=== PATIENT | female | born 1940 | race Caucasian/White ===

== ENCOUNTER → 2016-10-20 | Outpatient (CLI) | payer OTHER, MEDICARE | LOC: FIMAGING 10:39 | PROVIDERS: ATTEND Internal Medicine | DX: Z12.31 Encounter for screening mammogram for malignant neoplasm of breast (principal) | CPT/HCPCS: G0202 ==

== ENCOUNTER → 2017-10-21 | Outpatient (CLI) | payer OTHER, MEDICARE | LOC: FIMAGING 10:55 | PROVIDERS: ATTEND Internal Medicine | DX: Z12.31 Encounter for screening mammogram for malignant neoplasm of breast (principal) ==

== ENCOUNTER 2018-06-16 22:08 | Emergency (ER) | payer OTHER, MEDICARE ==
--- NOTE | 2018-06-16 22:11 | EDPHY ---
H & P Source: Patient Exam Limitations: No limitations - Medical/Surgical History Hx Asthma: No Hx Chronic Respiratory Disease: No Hx Diabetes: No Hx Cardiac Disease: No Hx Renal Disease: No Hx Cirrhosis: No Hx Alcoholism: No Hx HIV/AIDS: No Hx Splenectomy or Spleen Trauma: No - Social History Smoking Status: Never smoked Time Seen by Provider: 06/16/18 22:10 HPI/ROS: HPI: This is a 77-year-old female who presents with Chief Complaint: Fell, left hand injury/pain Location: Left hand Quality: Injury/pain Duration: Around 11:00 a.m. Signs and Symptoms: No bleeding, no radiation, no numbness, no weakness, no tingling, no incontinence, no decreased range of motion, no swelling, + pain, no fever, no skin color changes Timing: Gradual onset Severity: Moderate Context: Patient is right-hand dominant, presents with accidentally falling on her left outstretched hand approximately 12 hr ago while she was playing [employer] game at the [employer]. Reports that over the last several hours she has developed dorsal wrist pain that mid hand. She reports that now "it feels warm." Denies radiation, weakness, paresthesias. Denies LOC/head injury/neck pain/dizziness/nausea/vomiting/amnesia. Modifying Factors: None Comment: ROS: A comprehensive 10 system review of systems is otherwise negative aside from elements mentioned in the history of present illness. MEDICAL/SURGICAL/SOCIAL HISTORY: Medical history: Hypothyroidism Surgical history: Denies Social history: Never smoked, retired, CONSTITUTIONAL: Physically fit elderly white female who appears younger than stated age, awake and alert, no obvious distress HEENT: Atraumatic and normocephalic, PERRL, EOMI. Nares patent; no rhinorrhea; no nasal mucosal edema. Tympanic membranes clear. Oropharynx clear, no exudate and moist pink mucosa. Airway patent. No lymphadenopathy. No meningismus. Cardiovascular: Normal S1/S2, regular rate, regular rhythm, without murmur rub or gallop. PULMONARY/CHEST: Symmetrical and nontender. Clear to auscultation bilaterally. Good air movement. No accessory muscle usage. ABDOMEN: Soft, nondistended, nontender, no rebound, no guarding, no peritoneal signs, no masses or organomegaly. No CVAT. EXTREMITIES: 2/2 rate pulses, launch leader strength 5/5, WRIST: Extension to 70, flexion to 80, radial deviation to 20 degree, ulnar deviation to 30, mild scaphoid tenderness, mild tenderness over ulnar styloid, mild tenderness over radial styloid. no deformities, no clubbing, no cyanosis or edema. NEUROLOGICAL: no focal neuro deficits. GCS 15. SKIN: Warm and dry, thin, pallor, no erythema. no rash. Good capillary refill. (Dolores Young) Constitutional: Initial Vital Signs Temperature (C) 37.0 C 06/16/18 22:29 Heart Rate 79 06/16/18 22:29 Respiratory Rate 16 06/16/18 22:29 Blood Pressure 125/90 H 06/16/18 22:29 O2 Sat (%) 93 06/16/18 22:29 O2 Delivery Mode Room Air Allergies/Adverse Reactions: Sulfa (Sulfonamide Antibiotics) Allergy (Verified 06/23/15 04:52) Rash Home Medications: Medication Instructions Recorded Levothyroxine Sodium [Synthroid] 0 mcg PO 06/23/15 Atorvastatin Calcium [Lipitor 10 10 mg PO DAILY 06/16/18 mg (*)] Escitalopram Oxalate 06/16/18 Medical Decision Making - Diagnostics Imaging Results: Imaging Impressions Hand X-Ray 06/16/18 22:34 Impression: There is no acute abnormality identified. LEFT HAND (3 Views, at 10:43 PM): The bones are mildly demineralized, however there is no acute fracture or dislocation identified. Again, there is some degenerative change at the thumb carpometacarpal joint and the aforementioned degenerative calcification just distal to the greater multangular. Impression: There is no acute osseous abnormality identified. If there is a high clinical concern regarding an occult fracture, conservative management and short-term repeat radiographic follow-up in 7-14 days could be considered. Wrist X-Ray 06/16/18 22:34 Impression: There is no acute abnormality identified. LEFT HAND (3 Views, at 10:43 PM): The bones are mildly demineralized, however there is no acute fracture or dislocation identified. Again, there is some degenerative change at the thumb carpometacarpal joint and the aforementioned degenerative calcification just distal to the greater multangular. Impression: There is no acute osseous abnormality identified. If there is a high clinical concern regarding an occult fracture, conservative management and short-term repeat radiographic follow-up in 7-14 days could be considered. Procedures: Procedure: Splint placement. A left Velcro thumb spica splint was applied. After application of the splint I returned and re-examined the patient. The splint was adequately immobilizing the joint and distal to the splint the patient's circulation and sensation was intact. (Dolores Young) ED Course/Re-evaluation: Vital signs reviewed and stable. Fall was accidental in nature. Left hand and wrist x-rays ordered and my read shows no yannick fracture or dislocation Due to pain and age, placed in Velcro thumb spica with orthopedic follow-up No signs of neurovascular compromise/tenting of skin/compartment syndrome/ extremities and joints examined above and below area of concern and are neurovascularly intact. This patient was seen under the supervision of my secondary supervising physician. I evaluated and cared for this patient independently. (Dolores Young) PHYSICIAN DOCUMENTATION: The patient was evaluated and managed by the Physician Plant And Maintenance Technician. My co- signature indicates that I have reviewed this chart and I agree with the findings and plan of care as documented. I am the secondary supervising physician. (Jazmin Blanton) Differential Diagnosis: Differential diagnosis includes but is not limited to radial fracture,, carpal fracture, scaphoid fracture, contusion, sprain, nerve injury, ligament injury. (Dolores Young) Departure - Departure Disposition: Home, Routine, Self-Care Clinical Impression: Sprain of left hand Condition: Good Instructions: Splint Care (ED), Hand Sprain (ED) Additional Instructions: Wear the splint except to shower until pain free or seen by Orthopedics. Take Tylenol 650 mg every 4 hours and/or Ibuprofen 600 mg every 8 hours with food as needed for pain. Apply ice for 30 minutes at a time; 2-3 times per day for the next 1-2 days. Follow up with Orthopedics in 7-10 days at which time they will evaluate and recommend with you if conservative management versus further imaging is indicated. The x-rays obtained in the emergency department today demonstrate no evidence of an obvious fracture. Sometimes fractures are not obvious on the initial set of x-rays performed in the ED. For this reason, you should have repeat x-rays performed in 7-10 days if you are having any pain exclude the possibility of an occult fracture. Referrals: Rolo Burgess MD [Primary Care Provider] - As per Instructions Derek Magana MD [Medical Doctor] - As per Instructions
[2018-06-16 23:17] VITALS: BP 103/68
== END 2018-06-16 23:17 | disposition home or self-care (01) ==
DX: S63.92XA Sprain of unspecified part of left wrist and hand, initial encounter (principal); E03.9 Hypothyroidism, unspecified; W01.198A Fall on same level from slipping, tripping and stumbling with subsequent striking against other object, initial encounter; Y93.73 Activity, racquet and hand sports; Y92.838 Other recreation area as the place of occurrence of the external cause
CPT/HCPCS: 73110; 73130; 99283; L3807